=== PATIENT | female | born 1950 | race Caucasian/White ===

== ENCOUNTER → 2016-05-29 | Outpatient (CLI) | payer MEDICARE, BC ==
[2016-05-29 12:53] LABS: CALCIUM 9.7 mg/dL (8.5-10.1); CREATININE 0.7 mg/dL (0.6-1.0); GFR 83.2; POTASSIUM 3.7 mmol/L (3.5-5.1)
--- NOTE | 2016-05-29 13:02 | EKG ---
[facility] [address] [place] [address] Test Date: 2016-05-29 Test Time: 12:42:05 Pat Name: DARRYL MAYORGA Department: Room: Gender: Female Wood [employer]ist: LORENA : 1950 Requested By: LUISA CROWELL Order Number: [id number] Reading MD: Neil Caputo Measurements Intervals [place] Rate: 67 P: 52 [place]: 156 QRS: 11 QRSD: 88 T: 27 QT: 422 QTc: 449 Interpretive Statements SINUS RHYTHM QRS(T) CONTOUR ABNORMALITY CONSIDER ANTEROSEPTAL MYOCARDIAL DAMAGE POSSIBLY ABNORMAL ECG RI6.01 No previous ECG available for comparison Electronically Signed On 05-30-2016 11:49:39 HEART DOCTOR by Neil Caputo
== END | disposition home or self-care (01) ==
LOC: LAB 12:08
DX: Z01.812 Encounter for preprocedural laboratory examination (principal); Z01.810 Encounter for preprocedural cardiovascular examination
CPT/HCPCS: 36415; 80048; 93005